=== PATIENT | male | born 1975 | race Two or more races ===

== ENCOUNTER 2016-10-24 12:13 | Emergency (ER) | payer OTHER ==
[~2016-10-24] VITALS: Ht 167.6 cm; Wt 81.6 kg
[2016-10-24 12:40] VITALS: BP 123/68
[2016-10-24] MEDS ORDERED: Norco 5mg/325mg tab ORAL ONE (12:45)
--- NOTE | 2016-10-24 13:50 | Diagnostic Imaging Report ---
Indication: PAIN Technique: Spiral acquisitions obtained through the cervical spine. No IV contrast utilized. Multiplanar reconstructions were generated. Total dose length product 329 mGycm. CTDIvol(s) 15 mGy. Dose reduction achieved using automated exposure control Comparison: None Findings: No acute fractures. No dislocations. Bony alignment is normal. Vertebral body heights are preserved. Disc spaces are preserved. The neural foramina are preserved. No disc bulge or protrusion or spinal stenosis. The included lung apices are clear. The included extraspinal soft tissues are unremarkable. Impression: Negative The CT scanner at [facility] is accredited by the [employer] and the scans are performed using protocols designed to limit radiation exposure to as low as reasonably achievable to attain images of sufficient resolution adequate for diagnostic evaluation.
--- NOTE | 2016-10-24 13:52 | Diagnostic Imaging Report ---
Indication: PAIN Technique: Continuous helical CT scanning of the head was performed without intravenous contrast material. Axial and coronal 5 mm sections were generated. Radiation dose was minimized using automated exposure control Dose: Total Dose Length Product - DLP [address] Dose Index - CTDIvol(s) 70.38 mGy. Comparison: None Findings: The ventricular system is normal in size and configuration. There is no shift of midline structures. No abnormal extra-axial fluid collections are noted. There is no evidence of intracerebral bleeding. No other abnormal high or low density areas are noted within the brain. There is fairly extensive ethmoid and maxillary sinus disease. The mastoids are clear. Calvarium is intact Impression: Normal CT scan of the head without contrast material. Sinus disease incidentally noted The CT scanner at [facility] is accredited by the [employer] and the scans are performed using protocols designed to limit radiation exposure to as low as reasonably achievable to attain images of sufficient resolution adequate for diagnostic evaluation.
[2016-10-24] MEDS ORDERED: TRAMADOL HCL50 MG ORAL (14:33)
[2016-10-24] MEDS ORDERED: IBUPROFEN600 MG ORAL (14:33)
[2016-10-24 14:49] VITALS: BP 127/73
--- NOTE | 2016-10-24 16:10 | Diagnostic Imaging Report ---
Indication: PAIN Technique: 3 views right hand Comparison: none Findings: No acute fractures. No dislocations. The joint spaces are preserved. Impression: Negative
--- NOTE | 2016-10-24 22:29 | Emergency Room Report ---
History of Present Illness General Chief Complaint: Head Injury Source: Patient Present Illness HPI The patient is a 41-year-old male presenting for a fall. He states that he was at work and fell off of a 6 foot ladder. He states he fell onto his right hand and hit his head. He does admit to loss of consciousness. Unknown how long. He now describes the headache as a 9/10 dull ache to the entire head as well as a 7/10 dull ache to the right wrist. No radiating pain. Worse with movement. He denies nausea or vomiting. He denies other symptoms including fever, chills , shortness of breath, chest pain, numbness or tingling, blurred vision, dizziness Allergies: Coded Allergies: No Known Allergies (Unverified , 10/24/16) Patient History Past Medical History: see triage record Pertinent Family History: none Reviewed Nursing Documentation: PMH: Agreed, PSxH: Agreed Nursing Documentation-PMH Past Medical History: No Stated History Review of Systems All Other Systems: negative except mentioned in HPI Physical Exam Vital Signs Date Time Temp Pulse Resp B/P Pulse Ox O2 Delivery O2 Flow Rate FiO2 10/24/16 12:22 97.5 80 16 130/70 99 Room Air Sp02 EP Interpretation: reviewed, normal General Appearance: no apparent distress, alert, GCS 15, non-toxic Head: normocephalic, atraumatic Eyes: bilateral eye PERRL, bilateral eye normal inspection ENT: hearing grossly normal, normal pharynx, no angioedema, normal voice Neck: full range of motion, supple/symm/no masses Respiratory: chest non-tender, lungs clear, normal breath sounds, speaking full sentences Musculoskeletal: back normal, gait/station normal, normal range of motion, tender - TTP over the R lateral wrist Neurologic: alert, oriented x3, responsive, motor strength/tone normal, sensory intact, speech normal Psychiatric: judgement/insight normal, memory normal, mood/affect normal, no suicidal/homicidal ideation Skin: no rash, warm/dry, well hydrated, other - ecchymosis of frontal scalp Medical Decision Making PA Attestation Dr. Leon is my supervising physician. Patient management was discussed with my supervising physician Diagnostic Impression: Primary Impression: Contusion of right hand Qualified Codes: S60.221A - Contusion of right hand, initial encounter Additional Impressions: Acute head injury Qualified Codes: S09.90XA - Unspecified injury of head, initial encounter Contusion of scalp ER Course The patient is a 41-year-old male presenting for hand and head injury after falling at work Differential diagnoses considered but not limited to: Concussion, intracranial hemorrhage, fracture, contusion, sprain, among others Physical exam: No apparent distress Head is normocephalic. . Hematoma to the frontal scalp. No crepitus. No raccoon eyes or peterson signs. Neck is soft and supple. Nontender There is tenderness to palpation over the right lateral wrist inferior to the thumb MCP joint. Full active range of motion All imaging is unremarkable The patient is given pain medications and will be discharged home. He will follow up with primary doctor. ER precautions are given Other X-Ray Diagnostic Results Other X-Ray Diagnostic Results : X-Ray ordered: R hand # of Views/Limited Vs Complete: 3 View Indication: Pain EP Interpretation: Yes Interpretation: no dislocation, no soft tissue swelling, no fractures Impression: No acute disease Interpreting ER Provider: Dr. Edward NATHAN Scribe Text I am acting as scribe for my supervising physician. My supervising physician's interpretation of the R hand xrays are there are no fractures, dislocations or soft tissue swelling. CT/MRI/US Diagnostic Results CT/MRI/US Diagnostic Results #1: Imaging Test Ordered: CT head Impression Unremarkable CT/MRI/US Diagnostic Results #2: Imaging Test Ordered: CT C spine Impression unremarkable Last Vital Signs Date Time Temp Pulse Resp B/P Pulse Ox O2 Delivery O2 Flow Rate FiO2 10/24/16 14:49 59 18 127/73 97 Room Air 10/24/16 13:53 99.1 Status: improved Disposition: HOME, SELF-CARE Condition: Improved Scripts Tramadol Hcl* (ULTRAM*) 50 Mg Tablet 50 MG ORAL Q6H Y for For Pain, #10 TAB 0 Refills Prov: TERZIAN,ARLEN P.A. 10/24/16 Ibuprofen* (MOTRIN*) 600 Mg Tablet 600 MG ORAL Q8H Y for For Pain, #30 TAB 0 Refills Prov: TERZIAN,ARLEN P.A. 10/24/16 Patient Instructions: Head Injury, Adult, Hand Contusion Additional Instructions: I discussed my findings with the patient. All questions and concerns have been answered. Treatment and medication compliance have been addressed. I advised the patient that they need to follow up with PMD in 3-5 days. Return to ED if symptoms worsen, new symptoms arise, or if needed for any reason. Patient verbalized understanding of discharge instructions. ARLEN REED Oct 24, 2016 22:29
== END 2016-10-24 14:49 | disposition home or self-care (01) ==
LOC: EMR 13:00
DX: S09.90XA Unspecified injury of head, initial encounter (principal); S60.221A Contusion of right hand, initial encounter; S00.03XA Contusion of scalp, initial encounter; W11.XXXA Fall on and from ladder, initial encounter; Y93.9 Activity, unspecified; Y99.0 Civilian activity done for income or pay; J32.9 Chronic sinusitis, unspecified
CPT/HCPCS: 70450; 72125; 99284